=== PATIENT | male | born 1995 | race Hispanic/Latino ===

== ENCOUNTER 2018-04-04 10:02 | Outpatient (CLI) | payer OTHER ==
[2018-04-04 10:26] LABS: Blood Urea Nitrogen 13 mg/dL (9-20)
--- NOTE | 2018-04-04 11:59 | Cat Scan Report ---
CT ABDOMEN PELVIS WITH AND WITHOUT CONTRAST: HISTORY: Hematuria. COMPARISON: none. TECHNIQUE: Helical CT in 1.25mm intervals before and after IV contrast. Sagittal and coronal reconstructions. FINDINGS: Lung bases: Normal. Liver: Normal. Biliary system: Normal. Pancreas: Normal. Spleen: Normal. Kidneys/ureters/bladder: Both kidneys are normal size, contour and position. A 5 mm calyceal stone is identified at the inferior pole of the right kidney. A 4 mm calyceal stone is identified in the mid left kidney. Punctate calyceal stone is identified at the superior pole of the left kidney. There is no evidence for cystic disease, mass, ureteral stone or hydronephrosis. The bladder is unremarkable. Adrenal glands: Normal. Aorta: Normal. Intestines: Normal. Appendix: Not confidently identified, correlate with surgical history. Pelvic viscera: Normal. Ascites: Trace pelvic ascites is identified of unclear etiology. Adenopathy: None. Musculoskeletal: Normal. IMPRESSION: Bilateral renal calyceal stones as described. No ureteral stones or hydronephrosis.
== END 2018-04-04 10:03 | disposition home or self-care (01) ==
LOC: CT 10:02
PROVIDERS: ATTEND Urology
DX: N20.0 Calculus of kidney (principal)
CPT/HCPCS: 36415; 74178; 82565; 84520; Q9967